=== PATIENT | male | born 1985 | race American Indian/Alaskan Native ===

== ENCOUNTER 2020-07-11 11:25 | Emergency (ER) | payer OTHER ==
--- NOTE | 2020-07-11 12:25 | Emergency Department Report ---
ED General Adult HPI - General Chief complaint: Abdominal Pain Stated complaint: KIDNEY PAIN Time Seen by Provider: 07/11/20 12:19 Source: patient Mode of arrival: Ambulatory Limitations: No Limitations - History of Present Illness Initial comments: Patient is a 34-year-old male presents emergency room complaints of right flank pain that began a week ago but became worse this morning. He states it feels like a constant throbbing sensation. He states that last week he had hematuria but that has since resolved. He denies any dysuria, dark urine, odor to the urine, pain or swelling in the testicles, abdominal pain, penile discharge. He denies any past medical history. He denies ever having this in the past. He denies any allergies to medications. - Related Data Previous Rx's Medication Instructions Recorded Last Taken Type Ciprofloxacin HCl [Ciprofloxacin 500 mg PO BID 7 Days #14 tab 07/11/20 Unknown Rx TAB] Doxycycline Hyclate [Doxycycline 100 mg PO BID 7 Days #14 tab 07/11/20 Unknown Rx Hyclate TAB] Fluconazole (Nf) [Diflucan TAB] 150 mg PO ONCE #1 tablet 07/11/20 Unknown Rx Naproxen [EC-Naprosyn] 500 mg PO BID PRN #14 tablet. 07/11/20 Unknown Rx Allergies Allergy/AdvReac Type Severity Reaction Status Date / Time No Known Allergies Allergy Unverified 07/11/20 16:01 ED Review of Systems ROS: Stated complaint: KIDNEY PAIN Other details as noted in HPI Comment: All other systems reviewed and negative ED Past Medical Hx - Past Medical History Previous Medical History?: No - Surgical History Past Surgical History?: No - Medications Home Medications: Home Medications Medication Instructions Recorded Confirmed Last Taken Type Ciprofloxacin HCl [Ciprofloxacin 500 mg PO BID 7 Days #14 tab 07/11/20 Unknown Rx TAB] Doxycycline Hyclate [Doxycycline 100 mg PO BID 7 Days #14 tab 07/11/20 Unknown Rx Hyclate TAB] Fluconazole (Nf) [Diflucan TAB] 150 mg PO ONCE #1 tablet 07/11/20 Unknown Rx Naproxen [EC-Naprosyn] 500 mg PO BID PRN #14 tablet. 07/11/20 Unknown Rx ED Physical Exam - General Limitations: No Limitations General appearance: alert, in no apparent distress - Head Head exam: Present: atraumatic, normocephalic - Eye Eye exam: Present: normal appearance - ENT ENT exam: Present: mucous membranes moist - Respiratory Respiratory exam: Present: normal lung sounds bilaterally. Absent: respiratory distress, wheezes, rales, rhonchi, chest wall tenderness, accessory muscle use, decreased breath sounds, prolonged expiratory - Cardiovascular Cardiovascular Exam: Present: regular rate, normal rhythm, normal heart sounds. Absent: systolic murmur, diastolic murmur, rubs, gallop - GI/Abdominal GI/Abdominal exam: Present: soft, normal bowel sounds. Absent: distended, tenderness, guarding, rebound, rigid - Back Exam Back exam: Present: normal inspection, full ROM. Absent: CVA tenderness (R), CVA tenderness (L), paraspinal tenderness, vertebral tenderness - Neurological Exam Neurological exam: Present: alert, oriented X3, CN II-XII intact, normal gait. Absent: motor sensory deficit - Psychiatric Psychiatric exam: Present: normal affect, normal mood - Skin Skin exam: Present: warm, dry, intact ED Course Vital Signs 07/11/20 07/11/20 07/11/20 12:02 16:03 16:35 Temperature 98.5 F 98.1 F Pulse Rate 86 54 L Respiratory 18 18 18 Rate Blood Pressure 162/79 Blood Pressure 137/58 [Right] O2 Sat by Pulse 94 97 Oximetry ED Medical Decision Making - Lab Data Result diagrams: 07/11/20 13:55 07/11/20 13:55 Lab Results 07/11/20 07/11/20 07/11/20 Range/Units 13:16 13:55 13:55 WBC 10.7 (4.5-11.0) K/mm3 RBC 4.25 (3.65-5.03) M/mm3 Hgb 13.4 (11.8-15.2) gm/dl Hct 40.7 (35.5-45.6) % MCV 96 H (84-94) fl MCH 32 (28-32) pg MCHC 33 (32-34) % RDW 13.1 L (13.2-15.2) % Plt Count 271 (140-440) K/mm3 Lymph % (Auto) 28.1 (13.4-35.0) % [place] % (Auto) 10.1 H (0.0-7.3) % Eos % (Auto) 4.9 H (0.0-4.3) % Baso % (Auto) 0.8 (0.0-1.8) % Lymph # (Auto) 3.0 (1.2-5.4) K/mm3 [place] # (Auto) 1.1 H (0.0-0.8) K/mm3 Eos # (Auto) 0.5 H (0.0-0.4) K/mm3 Baso # (Auto) 0.1 (0.0-0.1) K/mm3 Seg Neutrophils % 56.1 (40.0-70.0) % Seg Neutrophils # 6.0 (1.8-7.7) K/mm3 Sodium 139 (137-145) mmol/L Potassium 4.1 (3.6-5.0) mmol/L Chloride 100.2 (98-107) mmol/L Carbon Dioxide 29 (22-30) mmol/L Anion Gap 14 mmol/L BUN 12 (9-20) mg/dL Creatinine 1.2 (0.8-1.3) mg/dL Estimated GFR > 60 ml/min BUN/Creatinine Ratio 10 % Glucose 73 L (75-100) mg/dL Calcium 10.0 (8.4-10.2) mg/dL Total Bilirubin 0.40 (0.1-1.2) mg/dL AST 19 (5-40) units/L ALT 17 (7-56) units/L Alkaline Phosphatase 82 (35-129) units/L Total Protein 7.2 (6.3-8.2) g/dL Albumin 4.6 (3.9-5) g/dL Albumin/Globulin Ratio 1.8 % Urine Color Yellow (Yellow) Urine Turbidity Cloudy (Clear) Urine pH 6.0 (5.0-7.0) Ur Specific [place] 1.019 (1.003-1.030) Urine Protein 100 mg/dl (Negative) mg/dL Urine Glucose (UA) Neg (Negative) mg/dL Urine Ketones Neg (Negative) mg/dL Urine Blood Mod (Negative) Urine Nitrite Neg (Negative) Urine Bilirubin Neg (Negative) Urine Urobilinogen 2.0 (<2.0) mg/dL Ur Leukocyte Esterase Lg (Negative) Urine WBC (Auto) > 182.0 H (0.0-6.0) /HPF Urine RBC (Auto) 65.0 (0.0-6.0) /HPF Urine Bacteria (Auto) 1+ (Negative) /HPF Urine WBC Clumps 3+ /HPF Urine Yeast (Budding) 3+ /HPF Vital Signs 07/11/20 07/11/20 07/11/20 12:02 16:03 16:35 Temperature 98.5 F 98.1 F Pulse Rate 86 54 L Respiratory 18 18 18 Rate Blood Pressure 162/79 Blood Pressure 137/58 [Right] O2 Sat by Pulse 94 97 Oximetry - Medical Decision Making Patient is a 34-year-old male presents emergency room complaints of right flank pain that began a week ago but became worse this morning. He states it feels like a constant throbbing sensation. He states that last week he had hematuria but that has since resolved. He denies any dysuria, dark urine, odor to the urine, pain or swelling in the testicles, abdominal pain, penile discharge. He denies any past medical history. He denies ever having this in the past. He denies any allergies to medications. vss. on exam: No CVA tenderness, no paraspinal or midline spinal tenderness, no step-offs, no deformities, no focal neuro deficits. Labs are stable. UA shows evidence of infection with many white blood cells, red blood cells, large leukocyte esterase. Patient is a young male, this could likely represent an STD. There is also yeast present in the urine. Patient given 500 mg IM ceftriaxone while in the emergency department. Patient given prescription for doxycycline, ciprofloxacin, naproxen, fluconazole. Advised patient Please take medication as prescribed. Increase your water intake. Please follow-up with the clinic or the health department to have a full STD panel. Please have any partner tested and treated as well. Avoid sexual intercourse. Return to emergency room immediately for any new or worsening symptoms. - Differential Diagnosis Nephrolithiasis, pyelonephritis, hydronephrosis, muscle strain, UTI, STD Critical care attestation.: If time is entered above; I have spent that time in minutes in the direct care of this critically ill patient, excluding procedure time. ED Disposition Clinical Impression: Flank pain, Yeast UTI, Concern about STD in male without diagnosis UTI (urinary tract infection) Qualifiers: Urinary tract infection type: acute cystitis Hematuria presence: with hematuria Qualified Code(s): N30.01 - Acute cystitis with hematuria Disposition: TO HOME OR SELFCARE Is pt being admited?: No Does the pt Need Aspirin: No Condition: Stable Additional Instructions: Please take medication as prescribed. Increase your water intake. Please follow-up with the clinic or the health department to have a full STD panel. Please have any partner tested and treated as well. Avoid sexual intercourse. Return to emergency room immediately for any new or worsening symptoms. walk in clinic: [facility] Address: [address] [place] [id number] Prescriptions: Ciprofloxacin HCl [Ciprofloxacin TAB] 500 mg PO BID 7 Days #14 tab Fluconazole (Nf) [Diflucan TAB] 150 mg PO ONCE #1 tablet Doxycycline Hyclate [Doxycycline Hyclate TAB] 100 mg PO BID 7 Days #14 tab Naproxen [EC-Naprosyn] 500 mg PO BID PRN #14 tablet.dr MEYER Reason: pain Referrals: [facility] [Provider Group] - 3-5 Days [facility] [Outside] - 3-5 Days [facility] [Outside] - 3-5 Days [facility] [Primary Care Provider] - 3-5 Days Time of Disposition: 14:59 Print Language: FRENCH
--- NOTE | 2020-07-11 13:31 | Cat Scan Report ---
Or underdistention. INDICATION: right flank pain. COMPARISON: None TECHNIQUE: Abdominal and pelvic CT exam performed. All CT scans at this location are performed using CT dose reduction for ALARA by means of automated exposure control. FINDINGS: CT ABDOMEN and PELVIS: Lung Bases: No significant abnormality. Liver: No significant abnormality. Biliary: Gallstones without gallbladder wall thickening or pericholecystic fluid. Spleen: No significant abnormality. Pancreas: No significant abnormality. Adrenals: No significant abnormality. Kidneys: No stones are visualized. No hydronephrosis. Lymphatics: No lymphadenopathy. Vasculature: No significant abnormality. Bowel: No significant abnormality. Normal appendix. Pelvis: There is mild thickening of bladder wall. Osseous Structures: No aggressive osseous lesion. Additional Findings: None IMPRESSION: 1. Mild thickening of the bladder wall which could be related to cystitis in the correct clinical set ting or underdistention. Otherwise, no stones or significant abnormality of the abdomen or pelvis is seen. Signer Name: Paul Blake MD Signed: 07/11/2020 1:26 PM Workstation Name: [id number]
[2020-07-11 13:39] LABS: Bacteria,Urine 1+ /HPF (Negative); Bilirubin,Urine NEG (Negative); Blood,Urine MOD (Negative); Color,Urine Yellow (Yellow)
[2020-07-11 13:41] LABS: WBC,Urine > 182.0 /HPF (0.0-6.0)
[2020-07-11 14:30] LABS: Basophils # (Auto) 0.1 K/mm3 (0.0-0.1); Basophils % (Auto) 0.8 % (0.0-1.8); Eosinophils # (Auto) 0.5 K/mm3 (0.0-0.4); Eosinophils % (Auto) 4.9 % (0.0-4.3); Hematocrit 40.7 % (35.5-45.6); Hemoglobin 13.4 gm/dl (11.8-15.2); Lymphocytes % (Auto) 28.1 % (13.4-35.0); Mean Corpuscular HGB Conc 33 % (32-34); Mean Corpuscular Volume 96 fl (84-94); Monocytes # (Auto) 1.1 K/mm3 (0.0-0.8); Monocytes % (Auto) 10.1 % (0.0-7.3); Platelet Count 271 K/mm3 (140-440); Red Blood Count 4.25 M/mm3 (3.65-5.03); Red Cell Distribution Width 13.1 % (13.2-15.2)
[2020-07-11] MEDS ORDERED: LIDOCAINE-MPF (1%) 10 MG/1 ML VIAL 5 ML INFILTRATI ONE (14:38)
[2020-07-11 14:55] LABS: Alanine Aminotransferase 17 units/L (7-56); Albumin 4.6 g/dL (3.9-5); BUN/Creatinine Ratio 10; Blood Urea Nitrogen 12 mg/dL (9-20); Hemolysis Index 2
[2020-07-11] MEDS ORDERED: ACETAMINOPHEN W/CODEINE 300-30 MG TAB PO ONE (16:19)
[2020-07-11 16:37] VITALS: BP 137/58
== END 2020-07-11 16:38 | disposition home or self-care (01) ==
LOC: ED 11:25
DX: N39.0 Urinary tract infection, site not specified (principal); N23 Unspecified renal colic; B37.9 Candidiasis, unspecified; Z20.2 Contact with and (suspected) exposure to infections with a predominantly sexual mode of transmission; Z79.2 Long term (current) use of antibiotics; Z79.899 Other long term (current) drug therapy
CPT/HCPCS: 36415; 74176; 80053; 81001; 85025; 96372; 99284; J0696